=== PATIENT | male | born 1960 | race Caucasian/White ===

== ENCOUNTER 2016-09-04 16:05 | Emergency (ER) | payer SELFPAY ==
[~2016-09-04] VITALS: Ht 177.8 cm; Wt 97.5 kg
[2016-09-04] MEDS ORDERED: NS 500 ML IV ONE (16:45)
[2016-09-04] MEDS ORDERED: KETOROLAC 30 MG/ML VIAL (J1885) IV ONE (16:45)
[2016-09-04 17:10] LABS: BASO % 0.3 % (0.0-1.0); EOS # 0.1 K/mm3 (0.0-0.50); LARGE UNSTAINED CELL # 0.1 K/mm3 (0.0-0.4); LARGE UNSTAINED CELL % 1.2 % (0.0-4.0); LYMPH # 2.3 K/mm3 (1.5-4.5); LYMPH % 19.9 % (24.0-44.0); MEAN CORPUSCULAR HEMOGLOBIN 30.9 pg (27.0-33.0); MEAN CORPUSCULAR HGB CONC 33.5 g/dl (32.0-36.5); MEAN CORPUSCULAR VOLUME 92.3 fl (80.0-96.0); MONO # 0.7 K/mm3 (0.0-0.8); MONO % 5.7 % (0.0-5.0); NEUTROPHILS # 8.2 K/mm3 (1.8-7.7); NEUTROPHILS % 71.9 % (36.0-66.0); PLATELET COUNT, AUTOMATED 225 k/mm3 (150-450); RED CELL DISTRIBUTION WIDTH 12.2 % (11.5-14.5); WHITE BLOOD COUNT 11.4 K/mm3 (4.0-10.0)
[2016-09-04 17:35] LABS: ALBUMIN 3.8 GM/DL (3.2-5.2); ALKALINE PHOSPHATASE 103 U/L (45-117); ALT/SGPT 36 U/L (12-78); ANION GAP 9 MEQ/L (8-16); AST/SGOT 25 U/L (15-37); BILIRUBIN,TOTAL 0.9 MG/DL (0.2-1.0); BLOOD UREA NITROGEN 8 MG/DL (7-18); CALCIUM LEVEL 8.5 MG/DL (8.5-10.1); CARBON DIOXIDE LEVEL 27 MEQ/L (21-32); CHLORIDE LEVEL 94 MEQ/L (98-107); CREATININE FOR GFR 0.88 MG/DL (0.70-1.30); GLOMERULAR FILTRATION RATE > 60.0 (>56); GLUCOSE, FASTING 91 MG/DL (70-105); POTASSIUM SERUM 4.1 MEQ/L (3.5-5.1); SODIUM LEVEL 130 MEQ/L (136-145); TOTAL PROTEIN 7.6 GM/DL (6.4-8.2)
--- NOTE | 2016-09-04 18:50 | REPUSA ---
HISTORY: Testicular pain. COMPARISON: No relevant comparison is available at the time of interpretation. TECHNIQUE: Ultrasound of the bilateral testicles and scrotum was performed. Doppler color flow was pe rformed to evaluate testicular vascularity. SCROTAL ULTRASOUND: Right testicle: 4.4 x 2.1 x 2.9 cm. Slightly increased vascular flow. Mild hydrocele. No varicocele. There are multiple cysts in the epididymal head, the largest measuring 7.8 mm. Left testicle: 3.7 x 1.8 x 2.3 cm. Normal vascular flow. No hydrocele or varicocele. There are multip le cysts in the epididymal head, the largest measuring 7.3 mm. IMPRESSION: 1. Bilateral epididymal cysts measuring up to 7 mm each. 2. No evidence of testicular torsion. I cannot exclude the possibility of right orchitis given faintl y increased vascular flow. However, this is a soft finding and not 100% indicative of orchitis.
--- NOTE | 2016-09-04 19:00 | REPUSA ---
CT of the abdomen and pelvis without contrast Clinical statement: Pain. Technique: Multiple axial CT images were obtained from the base of the lungs to the floor of the pelv is utilizing 5 mm axial slices without administration of contrast. Coronal and sagittal reconstructio ns were also obtained. No comparison is available. Findings: Chest: The visualized lung bases are clear. Abdomen: The kidneys are normal in size bilaterally. There is no evidence of hydronephrosis or nephro lithiasis. The liver, spleen, pancreas, gallbladder and adrenal glands are unremarkable. The aorta de monstrates normal caliber and contour. There is no abdominal lymphadenopathy or ascites. Pelvis: The bowel is unremarkable, with no obstructive or inflammatory changes. The appendix is rossana l. The urinary bladder is within normal limits. There is no pelvic lymphadenopathy or ascites. The ot her pelvic structures appear unremarkable. Bones: There are no suspicious osseous abnormalities seen. There is moderate degenerative disc diseas e at L3/L4, L4/L5 and L5/S1. Impression: 1. No acute abnormality to explain the patient's pain. 2. No evidence of hydronephrosis or nephrolithiasis. 3. No obstructive or inflammatory bowel changes. 4. Mild spondylosis of the lumbosacral spine.
[2016-09-04] MEDS ORDERED: IBUPROFEN 800 MG TAB PO ONE (20:15)
[2016-09-04 20:16] VITALS: BP 170/100
[2016-09-04] MEDS ORDERED: IBUP600T26 PO (20:19)
[2016-09-04] MEDS ORDERED: DOXY100C37 PO (20:19)
[2016-09-04] MEDS ORDERED: DOXYCYCLINE HYCLATE 100 MG TAB PO ONE (20:30)
== END 2016-09-04 20:26 | disposition home or self-care (01) ==
LOC: M ED 16:43
DX: N45.1 Epididymitis (principal)
CPT/HCPCS: 74176; 76870; 80053; 81001; 85025; 87086; 93976; 96361; 96374; 99282; J1885

== ENCOUNTER 2017-04-19 11:23 | Inpatient (IN) | payer SELFPAY ==
[~2017-04-19] VITALS: Ht 180.3 cm; Wt 111.4 kg
[~2017-04-19 11:23] MED LIST: DOXY100C37 PO; IBUP-1022 PO
[2017-04-19 12:00] LABS: MEAN CORPUSCULAR HGB CONC 34.6 g/dl (32.0-36.5); MEAN CORPUSCULAR VOLUME 86.7 fl (80.0-96.0); PLATELET COUNT, AUTOMATED 242 10^3/uL (150-450); RED CELL DISTRIBUTION WIDTH 12.8 % (11.5-14.5); WHITE BLOOD COUNT 10.3 10^3/uL (4.0-10.0)
[2017-04-19] MEDS ORDERED: OXAZEPAM 15 MG CAP PO ONE (12:00)
[2017-04-19 12:11] LABS: MUCUS, URINE RFX SMALL (NEGATIVE); SPECIFIC GRAVITY UR AUTO RFX 1.023 (1.002-1.035); SQUAM EPITHELIAL CELL UR AURFX 0 /HPF (0-6)
[2017-04-19 12:40] LABS: ALBUMIN 4.1 GM/DL (3.2-5.2); ALBUMIN/GLOBULIN RATIO 1.17 (1.00-1.93); ALKALINE PHOSPHATASE 101 U/L (45-117); ALT/SGPT 33 U/L (12-78); ANION GAP 11 MEQ/L (8-16); AST/SGOT 32 U/L (7-37); BILIRUBIN,DIRECT 0.4 MG/DL (0.0-0.2); BILIRUBIN,TOTAL 1.3 MG/DL (0.2-1.0); BLOOD UREA NITROGEN 10 MG/DL (7-18); CALCIUM LEVEL 9.6 MG/DL (8.5-10.1); CARBON DIOXIDE LEVEL 26 MEQ/L (21-32); CHLORIDE LEVEL 91 MEQ/L (98-107); CREATININE FOR GFR 0.79 MG/DL (0.70-1.30); GLOMERULAR FILTRATION RATE > 60.0 (>56); GLUCOSE, FASTING 95 MG/DL (70-105); POTASSIUM SERUM 4.6 MEQ/L (3.5-5.1); SODIUM LEVEL 128 MEQ/L (136-145); TOTAL PROTEIN 7.6 GM/DL (6.4-8.2)
[2017-04-19 12:45] LABS: METHADONE URINE NEGATIVE (NEGATIVE)
--- NOTE | 2017-04-19 13:07 | REP ---
SCROTAL ULTRASOUND: Real-time sonographic evaluation of the scrotum and contents performed. The testicles are normal in size and echotexture, right testicle measuring 5.1 x 2.3 x 3.0 cm and left testicle 5.2 x 1.8 x 2.3 cm. There is no testicular mass or torsion. There is blood flow seen in each testicle with duplex Doppler evaluation, RI right testicle 0.54 and left testicle 0.64. Small cysts are seen in the head of each epididymis, largest on the right measures 6 mm in diameter and largest on the left also measures 6 mm in diameter. Right inferior epididymis appears somewhat heterogeneous and enlarged which may indicate mild right sided inferior epididymitis. IMPRESSION: No testicular mass or torsion. Somewhat enlarged tail of right epididymis with heterogeneous echotexture may represent mild epididymitis. Signed by Brayan Gonzalez MD 04/19/2017 05:26 P
--- NOTE | 2017-04-19 14:51 | REP ---
CT BRAIN WITHOUT IV CONTRAST: CT brain performed without IV contrast. The ventricles are normal in size and position. There is no midline shift. The gonzalez-white differentiation is well maintained. There is no acute hemorrhage. There is no extra-axial fluid collection. There are vascular calcifications in the carotid siphons. IMPRESSION: Negative noncontrast CT brain. Signed by Brayan Gonzalez MD 04/19/2017 05:27 P
[2017-04-19 17:29] VITALS: BP 129/82
[2017-04-19] MEDS ORDERED: ACETAMINOPHEN TAB 650MG DOSE (2X325MG) PO PRN (18:15)
[2017-04-19] MEDS ORDERED: LORazepam 2 MG TAB PO PRN (18:15)
[2017-04-19] MEDS ORDERED: MAALOX 30 ML SUSP *UDC PO PRN (18:15)
[2017-04-19] MEDS ORDERED: traZODone 50 MG TAB PO PRN (18:15)
[2017-04-19] MEDS ORDERED: ALBUTEROL 90 MCG/ACT 8GM HFA INHALER INH PRN (18:15)
[2017-04-19] MEDS ORDERED: MOM 30ML SUSPENSION UDC PO PRN (18:15)
[2017-04-19] MEDS ORDERED: THIAMINE 100 MG TAB PO ONE (18:30)
[2017-04-19 19:05] VITALS: BP 150/78
[2017-04-20 08:00] VITALS: BP 154/82
[2017-04-20] MEDS: NICOTINE 21MG/24HR 1 EA TRANSDERMAL TD SCH (09:21)
[2017-04-20] MEDS: THIAMINE 100 MG TAB PO SCH ×2 (09:21→22:09)
[2017-04-20] MEDS: FOLIC ACID 1 MG TAB PO SCH (09:21)
[2017-04-20] MEDS: MULTIVITAMINS/MINERALS THERAP 1 TAB PO SCH (09:21)
--- NOTE | 2017-04-20 11:05 | HPEPDOC ---
[facility] Medical History & Physical Date of Admission Apr 19, 2017 History and Physical PCP: None ATTENDING: Dr. Ryan Mahan HPI: 56yoM admitted to [facility] for substance induced psychotic disorder, being medically examined today. Reluctant to answer questions. No acute medical complaints today. Denies any fevers, chills, weakness, fatigue , CALLE, CP, SOB, cough, palpitations, abdominal pain, N/V/D or changes in bowel or bladder habits. PMHx: Substance use poor dentition tobacco use PSHX: denies SOCHX: Resides in: [facility]. Marital Status: single Kids: 3 Employment: unemployed Tobacco use: 2 ppd ETOH: 6 per day x 30 years Illicit Drugs: Meth, marijuana IV Drug Use: Denies Tattoos done unprofessionally: Denies FAMHX: Mother: Alive, well Father: [place] Siblings: Alive, well Children: Alive, well Unexpected deaths due to medical reasons: None. ROS: As noted in HPI, otherwise 11pt ROS of systems reviewed and unremarkable. PE: 56 yo male, appears unkept. No acute distress. Alert and oriented x 3. Avoids eye contact, reluctant to answer questions. HEENT: Normocephalic, atraumatic. Pupils are equal, round, and reactive to light. Extraocular movements are intact. No nystagmus appreciated. Sclera are nonicteric. Conjunctiva without injection. Nose midline. Nasal turbinates without bogginess. EACs both patent BL. TMs both visualized and snowden with good cone of light, no bulging or erythema. No facial asymmetry. Moist mucous membranes. Dentition poor. Pharynx pink and moist. Neck supple, trachea midline. No lymphadenopathy or thyromegaly appreciated. CHEST: Regular rate and rhythm, +S1, +S2 LUNGS: Clear to auscultation bilaterally. No wheezes, rales, or rhonchi. Breathing appears symmetric and easy. Patient is speaking in full sentences. No accessory muscle use. ABD: Round, soft, non-tender, non-distended. +Bowel sounds throughout. No rebound or guarding. No costovertebral angle tenderness. EXT: Pulses 2+ bilaterally dorsalis pedis and radial. No lower extremity edema appreciated. SKIN: [place], dry, warm. Capillary refill <2sec. No rashes. NEURO: Alert and oriented x 3. Cranial nerves III-XII are intact. No focal deficits appreciated. EKG: pending. Scrotal U/S No testicular mass or torsion. Somewhat enlarged tail of right epididymis with heterogeneous echotexture may represent mild epididymitis. CT Head Negative noncontrast CT brain. A&P: 56yoM admitted to [facility] for substance induced psychotic disorder 1. Psych. Plan per Psychiatry. Obtain baseline EKG to assure the safety of psychiatric medications as they can prolong the QT interval. 2. Nicotine dependence. Patch available. 3. Poor dentition. No issues currently. Arrange dental provider at d/c. 4. Follow up. No Primary Care Provider. Will attempt to establish PCP on discharge. 5. Substance use. Per psychiatry. Continue with MVI, Thiamine, and Folic Acid supplementation. 6. Hyponatremia. Recheck CMP. 7. Leukocytosis. Pt is asymptomatic. Afebrile. Recheck CBC. 8. Possible Mild Epididymitis. Pt is denying any symptoms at this time, however apparently reported pain yesterday. Also had similar sx 09/15. Add UA/UC/Shine/ chlamydia amplification. Will add doxycycline 100mg bid x 10 days. Outpt F/U with Urology. 9. Staff member Ed present throughout exam. Vital Signs Vital Signs Date Time Temp Pulse Resp B/P (MAP) Pulse Ox O2 Delivery O2 Flow Rate FiO2 04/20/17 09:13 Room Air 04/19/17 19:05 107 150/78 04/19/17 17:29 97.2 20 04/19/17 16:47 98 Laboratory Data Labs 24H Laboratory Tests 2 04/19/17 11:44: Nucleated Red Blood Cells % (auto) 0.0, Urine Color ASHLEY, Urine Appearance CLEAR, Urine pH 6.0, Urine Specific [place] 1.023, Urine Protein 2+H, Urine Glucose (UA) NEGATIVE, Urine Ketones 1+H, Urine Blood NEGATIVE, Urine Nitrite NEGATIVE, Urine Bilirubin NEGATIVE, Urine Urobilinogen 2.0H, Urine Leukocyte Esterase NEGATIVE, Urine WBC (Auto) 1, Urine RBC (Auto) 1, Urine Hyaline Casts ( Auto) 1, Urine Bacteria (Auto) NEGATIVE, Urine Squamous Epithelial Cells 0, Urine Mucus (Auto) SMALL, Urine Sperm (Auto) , Anion Gap 11, Glomerular Filtration Rate > 60.0, Calcium Level 9.6, Aspartate Amino Transf (AST/SGOT) 32 , Alanine Aminotransferase (ALT/SGPT) 33, Alkaline Phosphatase 101, Total Bilirubin 1.3H, Direct Bilirubin 0.4H, Total Protein 7.6, Albumin 4.1, Albumin/ Globulin Ratio 1.17, Thyroid Stimulating Hormone (TSH) 2.000, Salicylates Level < 1.7L, Urine Amphetamines Screen POSITIVEH, Urine Benzodiazepines Screen NEGATIVE, Urine Opiates Screen NEGATIVE, Urine Methadone Screen NEGATIVE, Acetaminophen Level < 2.0L, Urine Barbiturates Screen NEGATIVE, Urine Phencyclidine Screen NEGATIVE, Urine Cocaine Metabolite Screen NEGATIVE, Urine Cannabinoids Screen POSITIVEH, Ethyl Alcohol Level 0.003 CBC/BMP Laboratory Tests 04/19/17 11:44 Red Blood Count 5.63, Mean Corpuscular Volume 86.7, Mean Corpuscular Hemoglobin 30.0, Mean Corpuscular Hemoglobin Concent 34.6, Red Cell Distribution Width 12.8 Allergies Coded Allergies: No Known Allergies (Verified Allergy, Unknown, 11/05/02) Teresa Covington Apr 20, 2017 11:05
[2017-04-20 12:19] LABS: MEAN CORPUSCULAR HEMOGLOBIN 30.1 pg (27.0-33.0); MEAN CORPUSCULAR HGB CONC 34.2 g/dl (32.0-36.5); MEAN CORPUSCULAR VOLUME 87.9 fl (80.0-96.0); PLATELET COUNT, AUTOMATED 220 10^3/uL (150-450); WHITE BLOOD COUNT 7.8 10^3/uL (4.0-10.0)
[2017-04-20 13:00] VITALS: BP 164/88
[2017-04-20 13:20] LABS: ALBUMIN 3.8 GM/DL (3.2-5.2); ALBUMIN/GLOBULIN RATIO 1.23 (1.00-1.93); ALKALINE PHOSPHATASE 100 U/L (45-117); ALT/SGPT 33 U/L (12-78); ANION GAP 7 MEQ/L (8-16); AST/SGOT 29 U/L (7-37); BILIRUBIN,TOTAL 0.5 MG/DL (0.2-1.0); BLOOD UREA NITROGEN 18 MG/DL (7-18); CARBON DIOXIDE LEVEL 29 MEQ/L (21-32); CHLORIDE LEVEL 100 MEQ/L (98-107); CREATININE FOR GFR 0.95 MG/DL (0.70-1.30); GLOMERULAR FILTRATION RATE > 60.0 (>56); GLUCOSE, FASTING 104 MG/DL (70-105); POTASSIUM SERUM 4.7 MEQ/L (3.5-5.1); SODIUM LEVEL 136 MEQ/L (136-145); TOTAL PROTEIN 6.9 GM/DL (6.4-8.2)
[2017-04-20 13:22] VITALS: BP 164/88
[2017-04-20] MEDS: DOXYCYCLINE HYCLATE 100 MG TAB PO SCH ×2 (14:03→22:09)
[2017-04-20 14:59] VITALS: BP 128/73
[2017-04-20 18:00] VITALS: BP 128/73
[2017-04-20 19:00] VITALS: BP 122/75
[2017-04-21 07:14] VITALS: BP 147/60
--- NOTE | 2017-04-21 07:30 | ECGEPIP ---
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
[2017-04-21 08:30] VITALS: BP 147/60
[2017-04-21] MEDS: THIAMINE 100 MG TAB PO SCH ×2 (11:35→20:05)
[2017-04-21] MEDS: NICOTINE 21MG/24HR 1 EA TRANSDERMAL TD SCH (11:35)
[2017-04-21] MEDS: FOLIC ACID 1 MG TAB PO SCH (11:36)
[2017-04-21] MEDS: DOXYCYCLINE HYCLATE 100 MG TAB PO SCH ×2 (11:36→20:05)
[2017-04-21] MEDS: MULTIVITAMINS/MINERALS THERAP 1 TAB PO SCH (11:36)
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
[2017-04-21 18:00] VITALS: BP 130/76
[2017-04-21 20:00] VITALS: BP 128/80
[2017-04-22 06:00] VITALS: BP 148/90
[2017-04-22 06:59] VITALS: BP 148/90
[2017-04-22] MEDS: NICOTINE 21MG/24HR 1 EA TRANSDERMAL TD SCH (09:00)
[2017-04-22] MEDS: THIAMINE 100 MG TAB PO SCH (09:37)
[2017-04-22] MEDS: FOLIC ACID 1 MG TAB PO SCH (09:37)
[2017-04-22] MEDS: DOXYCYCLINE HYCLATE 100 MG TAB PO SCH (09:37)
[2017-04-22] MEDS: MULTIVITAMINS/MINERALS THERAP 1 TAB PO SCH (09:37)
[2017-04-22] MEDS ORDERED: DOXY100T PO (10:15)
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
== END 2017-04-22 13:55 | disposition home or self-care (01) | DRG 775 ==
LOC: M ED 11:23 → M ED INP 16:15 → M PSY 17:25
PROVIDERS: ADMIT Psychiatry & Neurology Psychiatry; ATTEND Psychiatry & Neurology Psychiatry
DX: F19.29 Other psychoactive substance dependence with unspecified psychoactive substance-induced disorder (principal); F15.90 Other stimulant use, unspecified, uncomplicated; F10.239 Alcohol dependence with withdrawal, unspecified; E87.1 Hypo-osmolality and hyponatremia; F17.210 Nicotine dependence, cigarettes, uncomplicated; N45.1 Epididymitis; Z79.899 Other long term (current) drug therapy

== ENCOUNTER 2023-10-26 19:17 | Inpatient (IN) | payer MEDICAID, OTHER, SELFPAY ==
[~2023-10-26] VITALS: Ht 180.3 cm; Wt 108.8 kg
[~2023-10-26 19:17] MED LIST changes: +DOXY-323 PO; -DOXY100C37 PO; +DOXY100T PO
[2023-10-26] MEDS: LIDOCAINE 2% 5ML JELLY UROJET TOP ONE (19:25)
[2023-10-26] MEDS ORDERED: PROPOFOL 1,000 MG/100 ML VIAL As Ordered ONE (19:28)
[2023-10-26 19:43] LABS: BASO % 0.1 % (0.0-1.0); HEMATOCRIT 50.4 % (42.0-52.0); HEMOGLOBIN 17.3 g/dl (13.5-17.5); LYMPH # 1.2 10^3/uL (1.5-5.0); LYMPH % 6.4 % (24.0-44.0); MEAN CORPUSCULAR HEMOGLOBIN 29.5 pg (27.0-33.0); MEAN CORPUSCULAR HGB CONC 34.3 g/dl (32.0-36.5); MONO # 1.5 10^3/uL (0.0-0.8); MONO % 8.3 % (2.0-8.0); NEUTROPHILS # 15.5 10^3/uL (1.5-8.5); NEUTROPHILS % 84.7 % (36.0-66.0); PLATELET COUNT, AUTOMATED 252 10^3/uL (150-450); RED BLOOD COUNT 5.86 10^6/uL (4.30-6.10); WHITE BLOOD COUNT 18.2 10^3/uL (4.0-10.0)
[2023-10-26 19:54] LABS: ETHYL ALCOHOL (ETHANOL) 0.004 % (0.000-0.010)
[2023-10-26 19:55] LABS: CPK CREATINE PHOSPHOKINASE 552 U/L (46-171)
[2023-10-26 19:56] LABS: ALBUMIN 3.8 G/DL (3.2-5.2); ALKALINE PHOSPHATASE 90 U/L (46-116); ALT/SGPT 37 U/L (7.0-40); AST/SGOT 36 U/L (<34); BILIRUBIN,DIRECT 0.4 MG/DL (<0.4); BILIRUBIN,TOTAL 1.3 MG/DL (0.3-1.2); BLOOD UREA NITROGEN 19 MG/DL (9-23); CALCIUM LEVEL 9.6 MG/DL (8.3-10.6); CARBON DIOXIDE LEVEL 26 MMOL/L (20-31); CHLORIDE LEVEL 105 MMOL/L (98-107); CK-MB VALUE MASS 15.1 NG/ML (<3.6); GLOMERULAR FILTRATION RATE > 60.0 (>49); GLUCOSE, FASTING 140 MG/DL (74-106); MB/CK RELATIVE INDEX 2.73 (< OR =4); POTASSIUM SERUM 4.1 MMOL/L (3.5-5.1); SALICYLATE LEVEL < 3.0 MG/DL (<30); SODIUM LEVEL 141 MMOL/L (136-145); TOTAL PROTEIN 6.9 G/DL (5.7-8.2)
[2023-10-26 19:57] LABS: ABG pH (ARTERIAL) 7.288 UNITS (7.350-7.450)
[2023-10-26 19:58] LABS: ABG BASE EXCESS -1.4 (-2.0-2.0); ABG HCO3 26.5 MMOL/L (22.0-26.0); ABG O2 SATURATION 90.3 % (95.0-99.0); ABG PARTIAL PRESSURE CO2 56.6 mmHg (35.0-45.0); ABG PARTIAL PRESSURE O2 69.4 mmHg (75.0-100.0); ABG STANDARD HCO3 23.1 MMOL/L. (22.0-26.0); ABG TOTAL CO2 28.2 MMOL/L (23.0-31.0)
[2023-10-26 19:58] LABS: THYROID STIMULATING HORMONE 1.155 uIU/ML (0.55-4.78)
[2023-10-26] MEDS ORDERED: ISOVUE-370 76% 100ML VIAL As Ordered ONE (20:09)
[2023-10-26 20:34] LABS: AMPHETAMINES LEVEL URINE NEGATIVE (NEGATIVE); BARBITURATES URINE NEGATIVE (NEGATIVE); BENZODIAZEPINES URINE NEGATIVE (NEGATIVE); COCAINE METABOLITE URINE NEGATIVE (NEGATIVE); METHADONE URINE NEGATIVE (NEGATIVE); OPIATES URINE NEGATIVE (NEGATIVE); PHENCYCLIDINE URINE NEGATIVE (NEGATIVE)
[2023-10-26 20:35] LABS: CANNABINOIDS URINE POSITIVE (NEGATIVE)
[2023-10-26] MEDS ORDERED: FLUID PLACE HOLDER IV ONE (21:10)
[2023-10-26] MEDS ORDERED: VANCOMYCIN HCL IV ONE (21:10)
[2023-10-26] MEDS: NS 1,000 ML IV ONE (21:19)
[2023-10-26] MEDS: propofoL 1,000 MG in IV 1 EA IV SCH (21:21)
[2023-10-26] MEDS: PIPERACILLIN/TAZOBACTAM SOD 4.5 GM in D5W MINI-BAG PLUS 50 ML IV ONE (21:27)
[2023-10-26] MEDS: ETOMIDATE INJ 20MG/10ML VIAL IV ONE (21:32)
[2023-10-26] MEDS: ROCURONIUM BROMIDE 50MG/5ML VIAL IV ONE (21:33)
[2023-10-26] MEDS: ASPIRIN 300 MG SUPP PR STA (22:17)
[2023-10-26] MEDS: VANCOMYCIN HCL 1,000 MG, VIAL MATE ADAPTER 1 EACH in D5W 250 ML IV ONE ×2 (22:18→23:26)
[2023-10-26] MEDS ORDERED: NOREPINEPHRINE 4MG IN D5 250ML 4 MG in IV 1 EA IV SCH (23:00)
[2023-10-26] MEDS ORDERED: LABETALOL 100MG/20ML VIAL IV PRN (23:10)
[2023-10-26 23:13] LABS: ABG BASE EXCESS 0.4 (-2.0-2.0); ABG HCO3 26.3 MMOL/L (22.0-26.0); ABG O2 SATURATION 96.4 % (95.0-99.0); ABG PARTIAL PRESSURE CO2 46.7 mmHg (35.0-45.0); ABG PARTIAL PRESSURE O2 90.4 mmHg (75.0-100.0); ABG STANDARD HCO3 24.8 MMOL/L. (22.0-26.0); ABG TOTAL CO2 27.8 MMOL/L (23.0-31.0); ABG pH (ARTERIAL) 7.369 UNITS (7.350-7.450)
[2023-10-27] VITALS (72 sets, daily range): BP systolic 109–167; BP diastolic 55–95; TEMP 97.9–101; O2SAT 90–100
[2023-10-27] MEDS: propofoL 1,000 MG in IV 1 EA IV SCH (00:02)
[2023-10-27] MEDS ORDERED: MED REC CURRENTLY UNOBTAINABLE XX SCH (00:30)
[2023-10-27] MEDS: NS 1,000 ML IV SCH (01:31)
[2023-10-27] MEDS: THIAMINE 200MG 2ML VIAL IV SCH (01:38)
[2023-10-27] MEDS: PANTOPRAZOLE 40MG VIAL IV ONE (01:38)
[2023-10-27 01:51] LABS: CK-MB VALUE MASS 8.7 NG/ML (<3.6)
[2023-10-27 01:53] LABS: CPK CREATINE PHOSPHOKINASE 363 U/L (46-171); MB/CK RELATIVE INDEX 2.39 (< OR =4)
[2023-10-27 02:24] LABS: ALBUMIN 3.5 G/DL (3.2-5.2); ALKALINE PHOSPHATASE 83 U/L (46-116); ALT/SGPT 30 U/L (7.0-40); AST/SGOT 28 U/L (<34); BLOOD UREA NITROGEN 17 MG/DL (9-23); CALCIUM LEVEL 9.2 MG/DL (8.3-10.6); CARBON DIOXIDE LEVEL 31 MMOL/L (20-31); CHLORIDE LEVEL 109 MMOL/L (98-107); GLOMERULAR FILTRATION RATE > 60.0 (>49); GLUCOSE, FASTING 129 MG/DL (74-106); MAGNESIUM LEVEL 2.2 MG/DL (1.8-2.4); PHOSPHORUS LEVEL 4.5 MG/DL (2.4-5.1); POTASSIUM SERUM 4.3 MMOL/L (3.5-5.1); SODIUM LEVEL 145 MMOL/L (136-145); TOTAL PROTEIN 6.5 G/DL (5.7-8.2)
[2023-10-27] MEDS: PIPERACILLIN/TAZOBACTAM SOD 4.5 GM in D5W MINI-BAG PLUS 50 ML IV SCH (03:08)
[2023-10-27 05:29] LABS: ABG BASE EXCESS 1.4 (-2.0-2.0); ABG HCO3 25.5 MMOL/L (22.0-26.0); ABG O2 SATURATION 96.6 % (95.0-99.0); ABG PARTIAL PRESSURE CO2 39.1 mmHg (35.0-45.0); ABG PARTIAL PRESSURE O2 85.6 mmHg (75.0-100.0); ABG STANDARD HCO3 25.6 MMOL/L. (22.0-26.0); ABG TOTAL CO2 26.7 MMOL/L (23.0-31.0); ABG pH (ARTERIAL) 7.433 UNITS (7.350-7.450)
[2023-10-27 05:56] LABS: BASO % 0.1 % (0.0-1.0); EOS % 0.1 % (0.0-3.0); HEMATOCRIT 46.7 % (42.0-52.0); HEMOGLOBIN 15.4 g/dl (13.5-17.5); LYMPH # 1.6 10^3/uL (1.5-5.0); MEAN CORPUSCULAR HEMOGLOBIN 28.8 pg (27.0-33.0); MEAN CORPUSCULAR VOLUME 87.5 fl (80.0-96.0); MONO # 1.5 10^3/uL (0.0-0.8); MONO % 9.5 % (2.0-8.0); NEUTROPHILS # 12.7 10^3/uL (1.5-8.5); NEUTROPHILS % 79.8 % (36.0-66.0); PLATELET COUNT, AUTOMATED 220 10^3/uL (150-450); RED BLOOD COUNT 5.34 10^6/uL (4.30-6.10); WHITE BLOOD COUNT 15.9 10^3/uL (4.0-10.0)
[2023-10-27 06:06] LABS: ALBUMIN 3.2 G/DL (3.2-5.2); ALKALINE PHOSPHATASE 73 U/L (46-116); ALT/SGPT 25 U/L (7.0-40); AST/SGOT 24 U/L (<34); BILIRUBIN,TOTAL 0.9 MG/DL (0.3-1.2); BLOOD UREA NITROGEN 16 MG/DL (9-23); CALCIUM LEVEL 8.9 MG/DL (8.3-10.6); CARBON DIOXIDE LEVEL 30 MMOL/L (20-31); CHLORIDE LEVEL 110 MMOL/L (98-107); CREATININE FOR GFR 0.76 MG/DL (0.70-1.30); GLOMERULAR FILTRATION RATE > 60.0 (>49); GLUCOSE, FASTING 136 MG/DL (74-106); MAGNESIUM LEVEL 2.1 MG/DL (1.8-2.4); PHOSPHORUS LEVEL 3.3 MG/DL (2.4-5.1); SODIUM LEVEL 144 MMOL/L (136-145); TOTAL PROTEIN 5.8 G/DL (5.7-8.2)
[2023-10-27] MEDS ORDERED: HOME MED LIST COMPLETE! XX SCH (08:05)
[2023-10-27] MEDS: PANTOPRAZOLE 40MG VIAL IV SCH (08:47)
[2023-10-27] MEDS: ENOXAPARIN 40MG/0.4ML SYRINGE (J1650 PER 10MG) SC SCH (08:48)
[2023-10-27] MEDS: LORazepam 2 MG/ML 1ML VIAL IV PRN (09:22)
[2023-10-27] MEDS: MIDAZOLAM 100MG/100ML-0.9%NACL 100 MG in IV 1 EA IV SCH (10:58)
[2023-10-27] MEDS: fentaNYL 100 MCG/2 ML INJECTION IV PRN (12:43)
[2023-10-27 13:12] LABS: CHOLESTEROL LEVEL 175 MG/DL (<200); CHOLESTEROL RISK RATIO 5.68 (<5); HDL CHOLESTEROL 30.8 MG/DL (>40); NON-HDL-C 144.2 MG/DL; TRIGLYCERIDES LEVEL 186 MG/DL (<150)
[2023-10-27 14:33] LABS: HEMOGLOBIN A1c 5.5 % (4.0-6.0)
[2023-10-27] MEDS: MIDAZOLAM 5MG/ML 1ML VIAL IV ONE (16:00)
[2023-10-27] MEDS ORDERED: ACETAMINOPHEN TAB 650MG DOSE (2X325MG) PO PRN (17:25)
[2023-10-27] MEDS: ACETAMINOPHEN TAB 650MG DOSE (2X325MG) PO PRN (17:37)
[2023-10-27] MEDS: ASPIRIN 81MG CHEW TABLET NG SCH (20:25)
[2023-10-27] MEDS: ATORVASTATIN 20 MG TAB PO SCH (20:25)
[2023-10-27] MEDS: BACITRACIN OINTMENT 30GM TUBE TOP SCH (20:25)
[2023-10-27] MEDS ORDERED: ASPIRIN 81MG CHEW TABLET NG SCH (21:00)
[2023-10-27] MEDS: ACETAMINOPHEN *IV* 1,000 MG in IV 1 EA IV ONE (21:33)
[2023-10-28] VITALS (69 sets, daily range): BP systolic 113–156; BP diastolic 57–74; TEMP 99–100.4; O2SAT 92–99
[2023-10-28 04:54] LABS: BASO % 0.4 % (0.0-1.0); EOS # 0.1 10^3/uL (0.0-0.5); EOS % 0.5 % (0.0-3.0); HEMATOCRIT 42.7 % (42.0-52.0); HEMOGLOBIN 13.9 g/dl (13.5-17.5); LYMPH # 1.6 10^3/uL (1.5-5.0); LYMPH % 14.1 % (24.0-44.0); MEAN CORPUSCULAR HEMOGLOBIN 29.2 pg (27.0-33.0); MEAN CORPUSCULAR HGB CONC 32.6 g/dl (32.0-36.5); MEAN CORPUSCULAR VOLUME 89.7 fl (80.0-96.0); MONO # 1.1 10^3/uL (0.0-0.8); MONO % 9.6 % (2.0-8.0); NEUTROPHILS # 8.2 10^3/uL (1.5-8.5); NEUTROPHILS % 74.9 % (36.0-66.0); PLATELET COUNT, AUTOMATED 178 10^3/uL (150-450); RED BLOOD COUNT 4.76 10^6/uL (4.30-6.10)
[2023-10-28 05:54] LABS: ALBUMIN 2.7 G/DL (3.2-5.2); ALKALINE PHOSPHATASE 59 U/L (46-116); ALT/SGPT 16 U/L (7.0-40); AST/SGOT 13 U/L (<34); BILIRUBIN,TOTAL 1.1 MG/DL (0.3-1.2); BLOOD UREA NITROGEN 16 MG/DL (9-23); CALCIUM LEVEL 8.3 MG/DL (8.3-10.6); CARBON DIOXIDE LEVEL 29 MMOL/L (20-31); CHLORIDE LEVEL 113 MMOL/L (98-107); CREATININE FOR GFR 0.83 MG/DL (0.70-1.30); GLOMERULAR FILTRATION RATE > 60.0 (>49); GLUCOSE, FASTING 109 MG/DL (74-106); POTASSIUM SERUM 4.1 MMOL/L (3.5-5.1); SODIUM LEVEL 147 MMOL/L (136-145); TOTAL PROTEIN 5.3 G/DL (5.7-8.2)
[2023-10-28] MEDS: cefTRIAXone SOD 2 GM in D5W MINI-BAG PLUS 50 ML IV SCH (09:09)
[2023-10-28] MEDS: DOXYCYCLINE HYCLATE 100MG TABLET PO SCH (09:09)
[2023-10-28 11:21] LABS: PROCALCITONIN 0.09 ng/ml
[2023-10-28] MEDS: VANCOMYCIN HCL 1,000 MG, VIAL MATE ADAPTER 1 EACH in D5W 250 ML IV ONE ×2 (14:54→15:46)
[2023-10-28] MEDS ORDERED: LIDOCAINE 1% MDV 20ML VIAL As Ordered ONE (15:05)
[2023-10-28] MEDS: LIDOCAINE 1% MDV 20ML VIAL SC ONE (15:46)
[2023-10-29] VITALS (35 sets, daily range): BP systolic 120–194; BP diastolic 59–102; TEMP 99.7–100.4; O2SAT 90–100
[2023-10-29] MEDS: VANCOMYCIN HCL 750 MG, VIAL MATE ADAPTER 1 EACH in D5W 250 ML IV SCH (00:43)
[2023-10-29] MEDS: VANCOMYCIN HCL 500 MG in D5W MINI-BAG PLUS 100 ML IV SCH (01:56)
[2023-10-29 08:05] LABS: BASO % 0.2 % (0.0-1.0); EOS # 0.2 10^3/uL (0.0-0.5); EOS % 2.1 % (0.0-3.0); HEMATOCRIT 42.5 % (42.0-52.0); HEMOGLOBIN 13.6 g/dl (13.5-17.5); LYMPH # 1.3 10^3/uL (1.5-5.0); LYMPH % 14.6 % (24.0-44.0); MEAN CORPUSCULAR HEMOGLOBIN 28.7 pg (27.0-33.0); MEAN CORPUSCULAR VOLUME 89.7 fl (80.0-96.0); MONO # 0.8 10^3/uL (0.0-0.8); MONO % 8.6 % (2.0-8.0); NEUTROPHILS # 6.8 10^3/uL (1.5-8.5); NEUTROPHILS % 74.1 % (36.0-66.0); PLATELET COUNT, AUTOMATED 179 10^3/uL (150-450); RED BLOOD COUNT 4.74 10^6/uL (4.30-6.10); WHITE BLOOD COUNT 9.2 10^3/uL (4.0-10.0)
[2023-10-29 08:24] LABS: ALBUMIN 2.5 G/DL (3.2-5.2); ALKALINE PHOSPHATASE 60 U/L (46-116); ALT/SGPT 24 U/L (7.0-40); AST/SGOT 21 U/L (<34); BLOOD UREA NITROGEN 15 MG/DL (9-23); CALCIUM LEVEL 8.7 MG/DL (8.3-10.6); CARBON DIOXIDE LEVEL 28 MMOL/L (20-31); CHLORIDE LEVEL 110 MMOL/L (98-107); CREATININE FOR GFR 0.63 MG/DL (0.70-1.30); GLOMERULAR FILTRATION RATE > 60.0 (>49); GLUCOSE, FASTING 105 MG/DL (74-106); POTASSIUM SERUM 3.6 MMOL/L (3.5-5.1); SODIUM LEVEL 144 MMOL/L (136-145); TOTAL PROTEIN 5.4 G/DL (5.7-8.2)
[2023-10-29] MEDS: ASPIRIN 81MG CHEW TABLET PO SCH (09:36)
[2023-10-29] MEDS: CLOPIDOGREL 75 MG TAB PO SCH (09:39)
[2023-10-29] MEDS: dexmedeTOMidine 200 MCG in IV 1 EA IV SCH (09:51)
[2023-10-29 12:13] LABS: CPK CREATINE PHOSPHOKINASE 44 U/L (46-171)
[2023-10-30] VITALS (32 sets, daily range): BP systolic 116–176; BP diastolic 56–88; TEMP 98.4–100.4; O2SAT 91–100
[2023-10-30 04:54] LABS: BASO % 0.4 % (0.0-1.0); EOS # 0.2 10^3/uL (0.0-0.5); EOS % 2.6 % (0.0-3.0); HEMATOCRIT 40.9 % (42.0-52.0); HEMOGLOBIN 13.3 g/dl (13.5-17.5); LYMPH # 1.4 10^3/uL (1.5-5.0); LYMPH % 16.4 % (24.0-44.0); MEAN CORPUSCULAR HGB CONC 32.5 g/dl (32.0-36.5); MEAN CORPUSCULAR VOLUME 89.1 fl (80.0-96.0); MONO # 0.8 10^3/uL (0.0-0.8); MONO % 9.8 % (2.0-8.0); NEUTROPHILS # 5.9 10^3/uL (1.5-8.5); NEUTROPHILS % 70.3 % (36.0-66.0); PLATELET COUNT, AUTOMATED 189 10^3/uL (150-450); RED BLOOD COUNT 4.59 10^6/uL (4.30-6.10); WHITE BLOOD COUNT 8.4 10^3/uL (4.0-10.0)
[2023-10-30 05:12] LABS: ALBUMIN 2.4 G/DL (3.2-5.2); ALKALINE PHOSPHATASE 67 U/L (46-116); ALT/SGPT 28 U/L (7.0-40); AST/SGOT 23 U/L (<34); BLOOD UREA NITROGEN 16 MG/DL (9-23); CALCIUM LEVEL 8.9 MG/DL (8.3-10.6); CARBON DIOXIDE LEVEL 27 MMOL/L (20-31); CHLORIDE LEVEL 109 MMOL/L (98-107); CREATININE FOR GFR 0.62 MG/DL (0.70-1.30); GLOMERULAR FILTRATION RATE > 60.0 (>49); GLUCOSE, FASTING 134 MG/DL (74-106); POTASSIUM SERUM 3.8 MMOL/L (3.5-5.1); SODIUM LEVEL 141 MMOL/L (136-145); TOTAL PROTEIN 5.3 G/DL (5.7-8.2)
[2023-10-30] MEDS: MIDAZOLAM INJ 2MG/2ML VIAL IV PRN (11:58)
[2023-10-30] MEDS: SODIUM CHLORIDE 3% 500 ML IV ONE (12:46)
[2023-10-30] MEDS: hydrALAZINE 20MG/ML 1ML VIAL IV PRN (14:08)
[2023-10-30] MEDS: hydrALAZINE 20MG/ML 1ML VIAL IV ONE (15:07)
[2023-10-30 15:33] LABS: BLOOD UREA NITROGEN 17 MG/DL (9-23); CALCIUM LEVEL 9.1 MG/DL (8.3-10.6); CARBON DIOXIDE LEVEL 26 MMOL/L (20-31); CHLORIDE LEVEL 111 MMOL/L (98-107); CREATININE FOR GFR 0.65 MG/DL (0.70-1.30); GLOMERULAR FILTRATION RATE > 60.0 (>49); GLUCOSE, FASTING 119 MG/DL (74-106); POTASSIUM SERUM 3.9 MMOL/L (3.5-5.1); SODIUM LEVEL 145 MMOL/L (136-145)
[2023-10-30] MEDS: FUROSEMIDE 40MG/4ML VIAL IV ONE ×2 (16:19→22:53)
[2023-10-30] MEDS: amLODIPine 5 MG TAB PO SCH (20:03)
[2023-10-30 23:37] LABS: BLOOD UREA NITROGEN 17 MG/DL (9-23); CALCIUM LEVEL 8.8 MG/DL (8.3-10.6); CARBON DIOXIDE LEVEL 28 MMOL/L (20-31); CHLORIDE LEVEL 111 MMOL/L (98-107); CREATININE FOR GFR 0.76 MG/DL (0.70-1.30); GLOMERULAR FILTRATION RATE > 60.0 (>49); GLUCOSE, FASTING 113 MG/DL (74-106); POTASSIUM SERUM 3.7 MMOL/L (3.5-5.1); SODIUM LEVEL 146 MMOL/L (136-145)
[2023-10-31] VITALS (28 sets, daily range): BP systolic 125–170; BP diastolic 60–79; TEMP 97.3–99.1; O2SAT 90–99
[2023-10-31] MEDS: KCL 10MEQ/100ML SWI (KRUN) 10 MEQ in IV 1 EA IV SCH (02:00)
[2023-10-31 05:08] LABS: BASO % 0.4 % (0.0-1.0); EOS # 0.3 10^3/uL (0.0-0.5); EOS % 2.6 % (0.0-3.0); HEMATOCRIT 45.8 % (42.0-52.0); HEMOGLOBIN 14.9 g/dl (13.5-17.5); LYMPH # 1.8 10^3/uL (1.5-5.0); LYMPH % 16.2 % (24.0-44.0); MEAN CORPUSCULAR HEMOGLOBIN 28.8 pg (27.0-33.0); MEAN CORPUSCULAR HGB CONC 32.5 g/dl (32.0-36.5); MEAN CORPUSCULAR VOLUME 88.4 fl (80.0-96.0); MONO # 1.2 10^3/uL (0.0-0.8); MONO % 10.9 % (2.0-8.0); NEUTROPHILS # 7.6 10^3/uL (1.5-8.5); NEUTROPHILS % 69.3 % (36.0-66.0); PLATELET COUNT, AUTOMATED 239 10^3/uL (150-450); RED BLOOD COUNT 5.18 10^6/uL (4.30-6.10)
[2023-10-31 05:34] LABS: BLOOD UREA NITROGEN 17 MG/DL (9-23); CALCIUM LEVEL 9.3 MG/DL (8.3-10.6); CARBON DIOXIDE LEVEL 29 MMOL/L (20-31); CHLORIDE LEVEL 109 MMOL/L (98-107); CREATININE FOR GFR 0.86 MG/DL (0.70-1.30); GLOMERULAR FILTRATION RATE > 60.0 (>49); GLUCOSE, FASTING 120 MG/DL (74-106); POTASSIUM SERUM 3.9 MMOL/L (3.5-5.1); SODIUM LEVEL 144 MMOL/L (136-145)
[2023-10-31 05:37] LABS: ALBUMIN 2.8 G/DL (3.2-5.2); ALKALINE PHOSPHATASE 88 U/L (46-116); ALT/SGPT 56 U/L (7.0-40); AST/SGOT 47 U/L (<34); BILIRUBIN,TOTAL 1.1 MG/DL (0.3-1.2); BLOOD UREA NITROGEN 17 MG/DL (9-23); CALCIUM LEVEL 9.2 MG/DL (8.3-10.6); CARBON DIOXIDE LEVEL 28 MMOL/L (20-31); CHLORIDE LEVEL 112 MMOL/L (98-107); CREATININE FOR GFR 0.86 MG/DL (0.70-1.30); GLOMERULAR FILTRATION RATE > 60.0 (>49); GLUCOSE, FASTING 117 MG/DL (74-106); SODIUM LEVEL 148 MMOL/L (136-145); TOTAL PROTEIN 6.1 G/DL (5.7-8.2)
[2023-10-31] MEDS: propofoL 1,000 MG in IV 1 EA IV SCH ×2 (07:53→15:54)
[2023-10-31] MEDS: FUROSEMIDE 20MG/2ML VIAL IV SCH (08:04)
[2023-10-31] MEDS ORDERED: SODIUM CHLORIDE 3% 500 ML IV ONE ×2 (09:00→19:00)
[2023-10-31] MEDS: SODIUM CHLORIDE 3% 500 ML IV ONE (09:19)
[2023-10-31 09:53] LABS: BLOOD UREA NITROGEN 16 MG/DL (9-23); CALCIUM LEVEL 9.5 MG/DL (8.3-10.6); CARBON DIOXIDE LEVEL 29 MMOL/L (20-31); CHLORIDE LEVEL 110 MMOL/L (98-107); CREATININE FOR GFR 0.88 MG/DL (0.70-1.30); GLOMERULAR FILTRATION RATE > 60.0 (>49); GLUCOSE, FASTING 140 MG/DL (74-106); POTASSIUM SERUM 3.5 MMOL/L (3.5-5.1); SODIUM LEVEL 146 MMOL/L (136-145)
[2023-10-31] MEDS: SCOPOLAMINE 1MG TRANSDERMAL PATCH TOP ONE (10:06)
[2023-10-31] MEDS: KCL 20MEQ IN 100ML SWI (KRUN) 20 MEQ in IV 1 EA IV SCH (12:40)
[2023-10-31] MEDS ORDERED: MIDAZOLAM 100MG/100ML-0.9%NACL 100 MG in IV 1 EA IV SCH (14:35)
[2023-10-31 15:49] LABS: BLOOD UREA NITROGEN 17 MG/DL (9-23); CALCIUM LEVEL 9.3 MG/DL (8.3-10.6); CARBON DIOXIDE LEVEL 28 MMOL/L (20-31); CHLORIDE LEVEL 113 MMOL/L (98-107); CREATININE FOR GFR 0.71 MG/DL (0.70-1.30); GLOMERULAR FILTRATION RATE > 60.0 (>49); GLUCOSE, FASTING 120 MG/DL (74-106); POTASSIUM SERUM 4.2 MMOL/L (3.5-5.1); SODIUM LEVEL 145 MMOL/L (136-145)
[2023-10-31] MEDS: FUROSEMIDE 20MG/2ML VIAL IV ONE (16:00)
[2023-10-31] MEDS ORDERED: MIDAZOLAM INJ 2MG/2ML VIAL IV PRN (17:20)
[2023-10-31] MEDS: SODIUM CHLORIDE 3% 500 ML IV SCH (19:49)
[2023-10-31 21:28] LABS: BLOOD UREA NITROGEN 20 MG/DL (9-23); CARBON DIOXIDE LEVEL 30 MMOL/L (20-31); CHLORIDE LEVEL 114 MMOL/L (98-107); CREATININE FOR GFR 0.88 MG/DL (0.70-1.30); GLOMERULAR FILTRATION RATE > 60.0 (>49); GLUCOSE, FASTING 136 MG/DL (74-106); POTASSIUM SERUM 3.9 MMOL/L (3.5-5.1); SODIUM LEVEL 151 MMOL/L (136-145)
[2023-11-01] VITALS (26 sets, daily range): BP systolic 112–139; BP diastolic 56–71; TEMP 97.5–98.5; O2SAT 93–97
[2023-11-01 03:46] LABS: BLOOD UREA NITROGEN 22 MG/DL (9-23); CALCIUM LEVEL 9.1 MG/DL (8.3-10.6); CARBON DIOXIDE LEVEL 30 MMOL/L (20-31); CHLORIDE LEVEL 115 MMOL/L (98-107); CREATININE FOR GFR 0.84 MG/DL (0.70-1.30); GLOMERULAR FILTRATION RATE > 60.0 (>49); GLUCOSE, FASTING 121 MG/DL (74-106); POTASSIUM SERUM 4.1 MMOL/L (3.5-5.1); SODIUM LEVEL 149 MMOL/L (136-145)
[2023-11-01 04:36] LABS: BASO # 0.1 10^3/uL (0.0-0.2); BASO % 0.6 % (0.0-1.0); EOS # 0.2 10^3/uL (0.0-0.5); EOS % 2.8 % (0.0-3.0); HEMATOCRIT 43.4 % (42.0-52.0); HEMOGLOBIN 13.7 g/dl (13.5-17.5); LYMPH # 1.7 10^3/uL (1.5-5.0); LYMPH % 20.1 % (24.0-44.0); MEAN CORPUSCULAR HEMOGLOBIN 28.8 pg (27.0-33.0); MEAN CORPUSCULAR HGB CONC 31.6 g/dl (32.0-36.5); MEAN CORPUSCULAR VOLUME 91.2 fl (80.0-96.0); MONO # 0.9 10^3/uL (0.0-0.8); MONO % 10.9 % (2.0-8.0); NEUTROPHILS # 5.6 10^3/uL (1.5-8.5); NEUTROPHILS % 65.1 % (36.0-66.0); PLATELET COUNT, AUTOMATED 238 10^3/uL (150-450); RED BLOOD COUNT 4.76 10^6/uL (4.30-6.10); WHITE BLOOD COUNT 8.6 10^3/uL (4.0-10.0)
[2023-11-01] MEDS: FUROSEMIDE 20MG/2ML VIAL IV SCH (09:24)
[2023-11-01 09:46] LABS: BLOOD UREA NITROGEN 21 MG/DL (9-23); CALCIUM LEVEL 9.1 MG/DL (8.3-10.6); CARBON DIOXIDE LEVEL 30 MMOL/L (20-31); CHLORIDE LEVEL 120 MMOL/L (98-107); CREATININE FOR GFR 0.88 MG/DL (0.70-1.30); GLOMERULAR FILTRATION RATE > 60.0 (>49); GLUCOSE, FASTING 119 MG/DL (74-106); POTASSIUM SERUM 4.1 MMOL/L (3.5-5.1); SODIUM LEVEL 155 MMOL/L (136-145)
[2023-11-01 11:04] LABS: MAGNESIUM LEVEL 2.3 MG/DL (1.8-2.4)
[2023-11-01] MEDS: SODIUM CHLORIDE 3% 500 ML IV SCH (12:47)
[2023-11-01 15:33] LABS: BLOOD UREA NITROGEN 21 MG/DL (9-23); CARBON DIOXIDE LEVEL 30 MMOL/L (20-31); CHLORIDE LEVEL 116 MMOL/L (98-107); CREATININE FOR GFR 0.82 MG/DL (0.70-1.30); GLOMERULAR FILTRATION RATE > 60.0 (>49); GLUCOSE, FASTING 110 MG/DL (74-106); SODIUM LEVEL 151 MMOL/L (136-145)
[2023-11-01] MEDS: FUROSEMIDE 40MG/4ML VIAL IV SCH (16:43)
[2023-11-01 21:14] LABS: BLOOD UREA NITROGEN 21 MG/DL (9-23); CALCIUM LEVEL 9.1 MG/DL (8.3-10.6); CARBON DIOXIDE LEVEL 28 MMOL/L (20-31); CHLORIDE LEVEL 121 MMOL/L (98-107); CREATININE FOR GFR 0.85 MG/DL (0.70-1.30); GLOMERULAR FILTRATION RATE > 60.0 (>49); GLUCOSE, FASTING 129 MG/DL (74-106); POTASSIUM SERUM 3.8 MMOL/L (3.5-5.1); SODIUM LEVEL 157 MMOL/L (136-145)
[2023-11-02] VITALS (29 sets, daily range): BP systolic 121–158; BP diastolic 59–74; TEMP 97.6–98.8; O2SAT 93–98
[2023-11-02 03:20] LABS: BASO # 0.1 10^3/uL (0.0-0.2); BASO % 0.6 % (0.0-1.0); EOS # 0.3 10^3/uL (0.0-0.5); EOS % 2.7 % (0.0-3.0); HEMATOCRIT 44.7 % (42.0-52.0); HEMOGLOBIN 14.1 g/dl (13.5-17.5); LYMPH % 19.8 % (24.0-44.0); MEAN CORPUSCULAR HEMOGLOBIN 28.6 pg (27.0-33.0); MEAN CORPUSCULAR HGB CONC 31.5 g/dl (32.0-36.5); MEAN CORPUSCULAR VOLUME 90.7 fl (80.0-96.0); MONO # 1.1 10^3/uL (0.0-0.8); MONO % 10.5 % (2.0-8.0); NEUTROPHILS # 6.8 10^3/uL (1.5-8.5); NEUTROPHILS % 66.1 % (36.0-66.0); PLATELET COUNT, AUTOMATED 243 10^3/uL (150-450); RED BLOOD COUNT 4.93 10^6/uL (4.30-6.10); WHITE BLOOD COUNT 10.3 10^3/uL (4.0-10.0)
[2023-11-02 03:44] LABS: BLOOD UREA NITROGEN 24 MG/DL (9-23); CALCIUM LEVEL 9.3 MG/DL (8.3-10.6); CARBON DIOXIDE LEVEL 32 MMOL/L (20-31); CHLORIDE LEVEL 117 MMOL/L (98-107); CREATININE FOR GFR 0.92 MG/DL (0.70-1.30); GLOMERULAR FILTRATION RATE > 60.0 (>49); GLUCOSE, FASTING 117 MG/DL (74-106); POTASSIUM SERUM 3.8 MMOL/L (3.5-5.1); SODIUM LEVEL 154 MMOL/L (136-145)
[2023-11-02 09:51] LABS: BLOOD UREA NITROGEN 25 MG/DL (9-23); CALCIUM LEVEL 9.4 MG/DL (8.3-10.6); CARBON DIOXIDE LEVEL 28 MMOL/L (20-31); CHLORIDE LEVEL 120 MMOL/L (98-107); CREATININE FOR GFR 0.75 MG/DL (0.70-1.30); GLOMERULAR FILTRATION RATE > 60.0 (>49); GLUCOSE, FASTING 128 MG/DL (74-106); SODIUM LEVEL 157 MMOL/L (136-145)
[2023-11-02] MEDS: NEOSPORIN OINT 0.9 GM PKT TOP ONE (14:29)
[2023-11-02] MEDS ORDERED: SODIUM CHLORIDE 0.9% INJ 10 ML SYR IV PRN (15:00)
[2023-11-02 15:36] LABS: BLOOD UREA NITROGEN 27 MG/DL (9-23); CALCIUM LEVEL 9.2 MG/DL (8.3-10.6); CARBON DIOXIDE LEVEL 30 MMOL/L (20-31); CHLORIDE LEVEL 119 MMOL/L (98-107); CREATININE FOR GFR 0.78 MG/DL (0.70-1.30); GLOMERULAR FILTRATION RATE > 60.0 (>49); GLUCOSE, FASTING 122 MG/DL (74-106); POTASSIUM SERUM 3.8 MMOL/L (3.5-5.1); SODIUM LEVEL 156 MMOL/L (136-145)
[2023-11-02] MEDS: SODIUM CHLORIDE 0.9% INJ 10 ML SYR IV SCH (17:54)
[2023-11-02] MEDS ORDERED: SODIUM CHLORIDE 3% 500 ML IV ONE (21:00)
[2023-11-02 21:22] LABS: BLOOD UREA NITROGEN 25 MG/DL (9-23); CARBON DIOXIDE LEVEL 29 MMOL/L (20-31); CHLORIDE LEVEL 118 MMOL/L (98-107); CREATININE FOR GFR 0.72 MG/DL (0.70-1.30); GLOMERULAR FILTRATION RATE > 60.0 (>49); GLUCOSE, FASTING 116 MG/DL (74-106); SODIUM LEVEL 154 MMOL/L (136-145)
[2023-11-02 21:54] LABS: MAGNESIUM LEVEL 2.2 MG/DL (1.8-2.4)
[2023-11-03] VITALS (30 sets, daily range): BP systolic 112–150; BP diastolic 55–72; TEMP 98.3–102; O2SAT 90–96
[2023-11-03 03:59] LABS: BLOOD UREA NITROGEN 25 MG/DL (9-23); CALCIUM LEVEL 8.9 MG/DL (8.3-10.6); CARBON DIOXIDE LEVEL 29 MMOL/L (20-31); CHLORIDE LEVEL 117 MMOL/L (98-107); CREATININE FOR GFR 0.82 MG/DL (0.70-1.30); GLOMERULAR FILTRATION RATE > 60.0 (>49); GLUCOSE, FASTING 132 MG/DL (74-106); POTASSIUM SERUM 3.8 MMOL/L (3.5-5.1); SODIUM LEVEL 152 MMOL/L (136-145)
[2023-11-03] MEDS: PIPERACILLIN/TAZOBACTAM SOD 4.5 GM in D5W MINI-BAG PLUS 50 ML IV SCH (04:30)
[2023-11-03] MEDS: ACETAMINOPHEN 650MG SUPP PR PRN (04:30)
[2023-11-03 04:38] LABS: COLOR, URINE MANUAL YELLOW (YELLOW)
[2023-11-03 04:39] LABS: PH,URINE MAN 5.5 UNITS (5.0 - 7.0)
[2023-11-03 04:40] LABS: BILIRUBIN, URINE MANUAL NEGATIVE (NEGATIVE); BLOOD URINE MANUAL NEGATIVE (NEGATIVE); GLUCOSE, URINE (UA) MANUAL NEGATIVE (NEGATIVE); KETONE, URINE MANUAL NEGATIVE (NEGATIVE); LEUKOCYTE ESTERASE, URINE MAN NEGATIVE (NEGATIVE); NITRITE, URINE MANUAL NEGATIVE (NEGATIVE); PROTEIN, URINE MANUAL NEGATIVE (NEGATIVE); UROBILINOGEN, URINE MANUAL NORMAL (NORMAL)
[2023-11-03 04:42] LABS: APPEARANCE, URINE MANUAL CLEAR (CLEAR)
[2023-11-03] MEDS: cefTRIAXone SOD 2 GM in D5W MINI-BAG PLUS 50 ML IV SCH (08:16)
[2023-11-03 08:53] LABS: BLOOD UREA NITROGEN 26 MG/DL (9-23); CARBON DIOXIDE LEVEL 29 MMOL/L (20-31); CHLORIDE LEVEL 116 MMOL/L (98-107); CREATININE FOR GFR 0.84 MG/DL (0.70-1.30); GLOMERULAR FILTRATION RATE > 60.0 (>49); GLUCOSE, FASTING 122 MG/DL (74-106); POTASSIUM SERUM 3.9 MMOL/L (3.5-5.1); SODIUM LEVEL 152 MMOL/L (136-145)
[2023-11-03 16:00] LABS: BLOOD UREA NITROGEN 25 MG/DL (9-23); CALCIUM LEVEL 8.7 MG/DL (8.3-10.6); CARBON DIOXIDE LEVEL 30 MMOL/L (20-31); CHLORIDE LEVEL 115 MMOL/L (98-107); CREATININE FOR GFR 0.79 MG/DL (0.70-1.30); GLOMERULAR FILTRATION RATE > 60.0 (>49); GLUCOSE, FASTING 116 MG/DL (74-106); SODIUM LEVEL 150 MMOL/L (136-145)
[2023-11-03 21:44] LABS: BLOOD UREA NITROGEN 25 MG/DL (9-23); CALCIUM LEVEL 8.8 MG/DL (8.3-10.6); CARBON DIOXIDE LEVEL 30 MMOL/L (20-31); CHLORIDE LEVEL 113 MMOL/L (98-107); CREATININE FOR GFR 0.77 MG/DL (0.70-1.30); GLOMERULAR FILTRATION RATE > 60.0 (>49); GLUCOSE, FASTING 113 MG/DL (74-106); POTASSIUM SERUM 3.9 MMOL/L (3.5-5.1); SODIUM LEVEL 149 MMOL/L (136-145)
[2023-11-04] VITALS (32 sets, daily range): BP systolic 116–157; BP diastolic 58–70; TEMP 98–102; O2SAT 89–98
[2023-11-04 03:28] LABS: BASO # 0.1 10^3/uL (0.0-0.2); BASO % 0.6 % (0.0-1.0); EOS # 0.2 10^3/uL (0.0-0.5); EOS % 1.3 % (0.0-3.0); HEMATOCRIT 42.6 % (42.0-52.0); HEMOGLOBIN 13.5 g/dl (13.5-17.5); LYMPH # 2.8 10^3/uL (1.5-5.0); LYMPH % 23.5 % (24.0-44.0); MEAN CORPUSCULAR HEMOGLOBIN 28.8 pg (27.0-33.0); MEAN CORPUSCULAR HGB CONC 31.7 g/dl (32.0-36.5); MEAN CORPUSCULAR VOLUME 90.8 fl (80.0-96.0); MONO # 1.2 10^3/uL (0.0-0.8); NEUTROPHILS # 7.6 10^3/uL (1.5-8.5); NEUTROPHILS % 64.2 % (36.0-66.0); PLATELET COUNT, AUTOMATED 218 10^3/uL (150-450); RED BLOOD COUNT 4.69 10^6/uL (4.30-6.10); WHITE BLOOD COUNT 11.8 10^3/uL (4.0-10.0)
[2023-11-04 04:06] LABS: BLOOD UREA NITROGEN 25 MG/DL (9-23); CALCIUM LEVEL 8.9 MG/DL (8.3-10.6); CARBON DIOXIDE LEVEL 30 MMOL/L (20-31); CHLORIDE LEVEL 113 MMOL/L (98-107); CREATININE FOR GFR 0.83 MG/DL (0.70-1.30); GLOMERULAR FILTRATION RATE > 60.0 (>49); GLUCOSE, FASTING 121 MG/DL (74-106); POTASSIUM SERUM 4.1 MMOL/L (3.5-5.1); SODIUM LEVEL 148 MMOL/L (136-145)
[2023-11-04 09:45] LABS: BLOOD UREA NITROGEN 24 MG/DL (9-23); CALCIUM LEVEL 8.9 MG/DL (8.3-10.6); CARBON DIOXIDE LEVEL 30 MMOL/L (20-31); CHLORIDE LEVEL 111 MMOL/L (98-107); CREATININE FOR GFR 0.84 MG/DL (0.70-1.30); GLOMERULAR FILTRATION RATE > 60.0 (>49); GLUCOSE, FASTING 125 MG/DL (74-106); SODIUM LEVEL 145 MMOL/L (136-145)
[2023-11-04] MEDS: SCOPOLAMINE 1MG TRANSDERMAL PATCH TOP ONE (09:59)
[2023-11-04] MEDS: LIDOCAINE 1% MDV 20ML VIAL XX ONE (11:15)
[2023-11-04] MEDS: ACETAMINOPHEN *IV* 1,000 MG in IV 1 EA IV ONE ×2 (13:46→21:29)
[2023-11-04 15:50] LABS: BLOOD UREA NITROGEN 27 MG/DL (9-23); CALCIUM LEVEL 8.8 MG/DL (8.3-10.6); CARBON DIOXIDE LEVEL 30 MMOL/L (20-31); CHLORIDE LEVEL 109 MMOL/L (98-107); CREATININE FOR GFR 0.78 MG/DL (0.70-1.30); GLOMERULAR FILTRATION RATE > 60.0 (>49); GLUCOSE, FASTING 115 MG/DL (74-106); POTASSIUM SERUM 4.1 MMOL/L (3.5-5.1); SODIUM LEVEL 144 MMOL/L (136-145)
[2023-11-04] MEDS: FUROSEMIDE 40MG/4ML VIAL IV ONE (17:29)
[2023-11-04 22:06] LABS: BLOOD UREA NITROGEN 25 MG/DL (9-23); CALCIUM LEVEL 8.9 MG/DL (8.3-10.6); CARBON DIOXIDE LEVEL 30 MMOL/L (20-31); CHLORIDE LEVEL 108 MMOL/L (98-107); CREATININE FOR GFR 0.69 MG/DL (0.70-1.30); GLOMERULAR FILTRATION RATE > 60.0 (>49); GLUCOSE, FASTING 124 MG/DL (74-106); POTASSIUM SERUM 3.5 MMOL/L (3.5-5.1); SODIUM LEVEL 142 MMOL/L (136-145)
[2023-11-05] VITALS (44 sets, daily range): BP systolic 112–178; BP diastolic 60–83; TEMP 99.1–101.1; O2SAT 91–100
[2023-11-05] MEDS: FUROSEMIDE 40MG/4ML VIAL IV ONE ×3 (01:07→15:41)
[2023-11-05 03:35] LABS: BLOOD UREA NITROGEN 23 MG/DL (9-23); CALCIUM LEVEL 8.8 MG/DL (8.3-10.6); CARBON DIOXIDE LEVEL 30 MMOL/L (20-31); CHLORIDE LEVEL 107 MMOL/L (98-107); CREATININE FOR GFR 0.64 MG/DL (0.70-1.30); GLOMERULAR FILTRATION RATE > 60.0 (>49); GLUCOSE, FASTING 144 MG/DL (74-106); POTASSIUM SERUM 3.3 MMOL/L (3.5-5.1); SODIUM LEVEL 143 MMOL/L (136-145)
[2023-11-05] MEDS: KCL 20MEQ IN 100ML SWI (KRUN) 20 MEQ in IV 1 EA IV SCH ×2 (07:36→20:17)
[2023-11-05] MEDS: POTASSIUM CHLORIDE 10% LIQ 20MEQ/15ML UDC PO ONE (09:05)
[2023-11-05 18:45] LABS: BLOOD UREA NITROGEN 24 MG/DL (9-23); CALCIUM LEVEL 9.4 MG/DL (8.3-10.6); CARBON DIOXIDE LEVEL 32 MMOL/L (20-31); CHLORIDE LEVEL 105 MMOL/L (98-107); CREATININE FOR GFR 0.57 MG/DL (0.70-1.30); GLOMERULAR FILTRATION RATE > 60.0 (>49); GLUCOSE, FASTING 136 MG/DL (74-106); MAGNESIUM LEVEL 2.3 MG/DL (1.8-2.4); POTASSIUM SERUM 3.6 MMOL/L (3.5-5.1); SODIUM LEVEL 141 MMOL/L (136-145)
[2023-11-05] MEDS: ACETAMINOPHEN TAB 650MG DOSE (2X325MG) PO PRN (20:17)
[2023-11-06] VITALS (17 sets, daily range): BP systolic 107–142; BP diastolic 58–69; TEMP 98.4–100.2; O2SAT 90–100
[2023-11-06 05:34] LABS: BASO # 0.1 10^3/uL (0.0-0.2); BASO % 0.4 % (0.0-1.0); EOS # 0.2 10^3/uL (0.0-0.5); EOS % 1.5 % (0.0-3.0); HEMATOCRIT 43.3 % (42.0-52.0); HEMOGLOBIN 13.9 g/dl (13.5-17.5); LYMPH # 1.8 10^3/uL (1.5-5.0); LYMPH % 12.3 % (24.0-44.0); MEAN CORPUSCULAR HEMOGLOBIN 28.6 pg (27.0-33.0); MEAN CORPUSCULAR HGB CONC 32.1 g/dl (32.0-36.5); MEAN CORPUSCULAR VOLUME 89.1 fl (80.0-96.0); NEUTROPHILS # 11.2 10^3/uL (1.5-8.5); NEUTROPHILS % 78.3 % (36.0-66.0); PLATELET COUNT, AUTOMATED 204 10^3/uL (150-450); RED BLOOD COUNT 4.86 10^6/uL (4.30-6.10); WHITE BLOOD COUNT 14.3 10^3/uL (4.0-10.0)
[2023-11-06 06:09] LABS: BLOOD UREA NITROGEN 25 MG/DL (9-23); CALCIUM LEVEL 9.1 MG/DL (8.3-10.6); CARBON DIOXIDE LEVEL 30 MMOL/L (20-31); CHLORIDE LEVEL 105 MMOL/L (98-107); CREATININE FOR GFR 0.51 MG/DL (0.70-1.30); GLOMERULAR FILTRATION RATE > 60.0 (>49); GLUCOSE, FASTING 147 MG/DL (74-106); MAGNESIUM LEVEL 2.2 MG/DL (1.8-2.4); POTASSIUM SERUM 3.5 MMOL/L (3.5-5.1); SODIUM LEVEL 139 MMOL/L (136-145)
[2023-11-06] MEDS: FUROSEMIDE 40MG/4ML VIAL IV ONE ×3 (07:47→21:05)
[2023-11-06] MEDS: KCL 20MEQ IN 100ML SWI (KRUN) 20 MEQ in IV 1 EA IV SCH (08:22)
[2023-11-06] MEDS ORDERED: ONDANSETRON 4MG 2ML VIAL IV PRN (15:45)
[2023-11-06] MEDS: SCOPOLAMINE 1MG TRANSDERMAL PATCH TOP PRN (17:07)
[2023-11-06] MEDS: LORazepam 2 MG/ML 1ML VIAL IV PRN ×2 (17:47→18:26)
[2023-11-06] MEDS: MORPHINE 2 MG/ML 1ML VIAL IV PRN ×2 (18:09→19:34)
== END 2023-11-09 08:00 | disposition expired | DRG 44 ==
LOC: EDBD 19:17 → M ED 19:17 → M ED INP 22:57 → M ICU 10-27 00:58 → M MS5PR 11-07 01:32
PROVIDERS: ADMIT Preventive Medicine Undersea and Hyperbaric Medicine; ATTEND Student in an Organized Health Care Education/Training Program
PROC: 5A1945Z Respiratory Ventilation, 24-96 Consecutive Hours (ICD-10-PCS; principal; 2023-10-26)
PROC: 0BJ08ZZ Inspection of Tracheobronchial Tree, Via Natural or Artificial Opening Endoscopic (ICD-10-PCS; 2023-10-28)
PROC: 06HM33Z Insertion of Infusion Device into Right Femoral Vein, Percutaneous Approach (ICD-10-PCS; 2023-10-30)
DX: I61.9 Nontraumatic intracerebral hemorrhage, unspecified (principal); J96.01 Acute respiratory failure with hypoxia; G93.5 Compression of brain; J69.0 Pneumonitis due to inhalation of food and vomit; G93.41 Metabolic encephalopathy; G93.6 Cerebral edema; R78.81 Bacteremia; D73.5 Infarction of spleen; E87.6 Hypokalemia; Z51.5 Encounter for palliative care; F17.200 Nicotine dependence, unspecified, uncomplicated; Z66 Do not resuscitate; F10.10 Alcohol abuse, uncomplicated